=== PATIENT | female | born 2000 | race African-American/Black ===

== ENCOUNTER 2021-10-03 11:43 | Emergency (ER) | payer OTHER ==
[2021-10-03 11:49] VITALS: BP 111/74; PULSE 100; TEMP 98; BMI 31.3
[2021-10-03] MEDS ORDERED: PENICILLIN G BENZATHINE 1,200,000 UNIT/2 ML PFS IM ONE ×2 (12:35→12:41)
[2021-10-03] MEDS ORDERED: IBUPROFEN 600 MG TABLET (FP) PO ONE ×2 (12:35→12:41)
[2021-10-03] MEDS ORDERED: DEXAMETHASONE LIQUID 0.5 MG/5 ML PO ONE (12:35)
[2021-10-03] MEDS ORDERED: DEXAMETHASONE SOD PHOSPHATE 10 MG/1 ML VIAL ONE (12:41)
== END 2021-10-03 14:06 | disposition home or self-care (01) ==
LOC: JER 11:43
DX: J02.9 Acute pharyngitis, unspecified (principal)
CPT/HCPCS: 36415; 87651; 99284-25